=== PATIENT | female | born 1950 | race Caucasian/White ===

== ENCOUNTER 2018-12-30 07:55 | Inpatient (IN) | payer MEDICAID ==
[~2018-12-30] VITALS: Ht 152.4 cm; Wt 101.6 kg
[2018-12-30] MEDS ORDERED: BUPIVACAINE HCL 0.5% (5MG/ML) 50ML ONE ×2 (08:49→10:09)
[2018-12-30] MEDS ORDERED: SODIUM CHLORIDE 0.9% 1,000 ML IV SCH (09:40)
[2018-12-30] MEDS ORDERED: SKIN ADHESIVE 0.7 GM EA TOP ONE (10:09)
[2018-12-30] MEDS ORDERED: ASPI-1393 PO (10:33)
[2018-12-30] MEDS ORDERED: SITA1TAB6 PO (10:33)
[2018-12-30] MEDS ORDERED: PIOG15TA66 PO (10:33)
[2018-12-30] MEDS ORDERED: DICL75TA5 PO (10:33)
[2018-12-30] MEDS ORDERED: FURO20TA4 PO (10:33)
[2018-12-30] MEDS ORDERED: HYDR200T80 PO (10:33)
[2018-12-30] MEDS ORDERED: ACET-2708 PO (10:33)
[2018-12-30] MEDS ORDERED: LISI-186 PO (10:33)
[2018-12-30] MEDS ORDERED: FAMO20TA8 PO (10:33)
[2018-12-30] MEDS ORDERED: GLIP-191 PO (10:33)
[2018-12-30] MEDS ORDERED: ERGO2000 PO (10:43)
[2018-12-30] MEDS ORDERED: VITA1TAB20 PO (10:43)
[2018-12-30] MEDS ORDERED: THIA100T72 PO (10:43)
[2018-12-30] MEDS ORDERED: LIDOCAINE HCL/PF 1% 10 MG/ML 5ML VIAL ONE (11:20)
[2018-12-30] MEDS ORDERED: CEFAZOLIN SODIUM 1000MG/VIAL ONE (11:20)
[2018-12-30] MEDS ORDERED: SUCCINYLCHOLINE CHLORIDE 200MG/10ML IV ONE (11:20)
[2018-12-30] MEDS ORDERED: PROPOFOL 200MG/20ML VIAL IV ONE (11:21)
[2018-12-30] MEDS ORDERED: ROCURONIUM BROMIDE 10MG/ML VIAL 5ML IV ONE (11:37)
[2018-12-30] MEDS ORDERED: FENTANYL CITRATE/PF 50MCG/ML 2ML VIAL ONE (12:38)
[2018-12-30] MEDS ORDERED: METOCLOPRAMIDE HCL 10MG/2ML VIAL ONE (12:51)
[2018-12-30] MEDS ORDERED: KETOROLAC 30MG/ML VIAL ONE (12:51)
[2018-12-30] MEDS ORDERED: NEOSTIGMINE METHYLSULFATE 1MG/ML 10 ML VIAL ONE (12:51)
[2018-12-30] MEDS ORDERED: ONDANSETRON HCL 4MG/2ML INJ ONE (12:51)
[2018-12-30] MEDS ORDERED: GLYCOPYRROLATE 0.2 MG/ML 2ML VIAL ONE (12:51)
[2018-12-30] MEDS ORDERED: ONDANSETRON HCL 4MG/2ML INJ IV PRN (14:00)
[2018-12-30] MEDS ORDERED: MORPHINE SULFATE 2 MG/ML CPJ (NOT FOR IM USE) IV PRN (14:00)
[2018-12-30] MEDS: HYDROMORPHONE HCL/PF 2MG/ML CPJ IV PRN ×3 (14:26→14:49)
[2018-12-30 16:00] VITALS: BP 123/54
[2018-12-30] MEDS: DEXT 5%/0.45% NACL KCL 20MEQ/L 1,000 ML IV SCH (17:53)
[2018-12-30] MEDS: CEFAZOLIN 1000MG PREMIX 50 ML IV SCH (18:01)
[2018-12-30 18:08] VITALS: BP 123/54
[2018-12-30] MEDS ORDERED: ACETAMINOPHEN 325MG TABLET PO PRN (18:45)
[2018-12-30] MEDS: METRONIDAZOLE 500 MG PREMIX 100 ML IV SCH (19:02)
[2018-12-30 20:00] VITALS: BP 116/52
[2018-12-30] MEDS: FAMOTIDINE 20MG/2ML VIAL IV SCH (20:10)
[2018-12-31] VITALS: BP 120/54
[2018-12-31 00:40] VITALS: BP 156/81
[2018-12-31] MEDS: CEFAZOLIN 1000MG PREMIX 50 ML IV SCH ×2 (01:59→09:01)
[2018-12-31] MEDS: DEXT 5%/0.45% NACL KCL 20MEQ/L 1,000 ML IV SCH ×2 (03:42→13:58)
[2018-12-31] MEDS: METRONIDAZOLE 500 MG PREMIX 100 ML IV SCH ×2 (03:42→12:38)
[2018-12-31 08:00] VITALS: BP 116/61
[2018-12-31] MEDS: FAMOTIDINE 20MG/2ML VIAL IV SCH (08:48)
[2018-12-31] MEDS: DICLOFENAC SODIUM 75MG DR (EC) TABLET PO SCH ×2 (08:49→17:00)
[2018-12-31] MEDS ORDERED: ASPIRIN 81MG TABLET PO SCH (09:00)
[2018-12-31] MEDS ORDERED: PIOGLITAZONE 15MG TABLET PO SCH (09:00)
[2018-12-31 12:03] VITALS: BP 115/48
[2018-12-31 14:40] VITALS: BP 115/48
[2018-12-31 16:00] VITALS: BP 141/65
== END 2018-12-31 17:30 | disposition home or self-care (01) | DRG 227 ==
LOC: OR 07:55 → 6EST 07:56
PROVIDERS: ADMIT Surgery; ATTEND Surgery
PROC: 0WUF0JZ Supplement Abdominal Wall with Synthetic Substitute, Open Approach (ICD-10-PCS; principal; 2018-12-30)
DX: K43.0 Incisional hernia with obstruction, without gangrene (principal)
CPT/HCPCS: 82962; 88302; C1781; J0330; J0690; J1170; J1885; J2270; J2405; J2704; J2710; J2765; J3010; J3490

== ENCOUNTER 2019-04-20 18:09 | Inpatient (IN) | payer MEDICAID, OTHER ==
[~2019-04-20] VITALS: Ht 162.6 cm; Wt 94.3 kg
[~2019-04-20 18:09] MED LIST: ACET-2708 PO; ASPI-1393 PO; DICL75TA5 PO; ERGO2000 PO; FAMO20TA8 PO; FURO20TA4 PO; GLIP-191 PO; HYDR200T80 PO; LISI-186 PO; PIOG15TA66 PO; SITA1TAB6 PO; THIA100T72 PO; VITA1TAB20 PO
[2019-04-20] MEDS ORDERED: ONDANSETRON HCL 4MG/2ML INJ IV ONE (20:00)
[2019-04-20] MEDS ORDERED: SODIUM CHLORIDE 0.9% 1000ML BAG (SEPSIS BOLUS) IV ONE (20:00)
[2019-04-20] MEDS ORDERED: MORPHINE SULFATE 4 MG/ML CPJ (NOT FOR IM USE) IV ONE (20:00)
[2019-04-20] MEDS ORDERED: VANCOMYCIN 1 G PREMIX 200 ML IV SCH (20:00)
[2019-04-20] MEDS ORDERED: PIPERACILLIN/TAZOBACTAM 3.375GM/50ML PREMIX IV ONE (20:00)
[2019-04-20] MEDS ORDERED: PIPERACILLIN/TAZOBACTAM 3.375 G in DEXT 5% WATER 100 ML IV NR (20:27)
[2019-04-20 20:28] LABS: HEMATOCRIT. 30.5 % (36.0-48.0); HEMOGLOBIN. 10.2 g/dL (12.0-16.0); MEAN CORPUSCULAR HEMOGLOBIN 30.4 pg (28.0-32.0); MEAN CORPUSCULAR VOLUME 90.4 fL (81.0-99.0); MEAN PLATELET VOLUME 6.9 fl (7.4-10.4); PLATELET 345 x1000/uL (130-400); RED BLOOD CELL COUNT 3.37 mill/uL (4.2-5.4); RED CELL DISTRIBUTION WIDTH 15.5 % (11.6-14.6)
[2019-04-20 20:33] LABS: CHLORIDE 97 mEq/L (98-107)
[2019-04-20 20:34] LABS: INR 1.1
[2019-04-20 21:04] LABS: PLATELET ESTIMATE NORMAL
[2019-04-21] VITALS (8 sets, daily range): BP systolic 90–124; BP diastolic 35–61
[2019-04-21 02:04] LABS: CLARITY URINE CLEAR (CLEAR); COLOR URINE YELLOW (YELLOW); KETONES URINE TRACE (NEGATIVE); LEUKOCYTE ESTERASE URINE NEGATIVE (NEGATIVE); NITRITE URINE NEGATIVE (NEGATIVE); OCCULT BLOOD URINE NEGATIVE (NEGATIVE); PROTEIN URINE NEGATIVE (NEGATIVE); SPECIFIC GRAVITY URINE 1.014 (1.005-1.030); UROBILINOGEN URINE 0.2 E.U./dL (0.2-1.0)
[2019-04-21] MEDS ORDERED: DEXTROSE 50% WATER 50ML SYRINGE IV PRN (03:00)
[2019-04-21] MEDS: BLOOD SUGAR DIAGNOSTIC STRIP TEST SCH ×4 (06:42→22:15)
[2019-04-21] MEDS: ACETAMINOPHEN 325MG TABLET PO PRN ×3 (06:45→21:26)
[2019-04-21] MEDS: SODIUM CHLORIDE 0.9% 1,000 ML IV SCH ×2 (08:11→22:18)
[2019-04-21] MEDS: VANCOMYCIN 1 G PREMIX 200 ML IV SCH (08:36)
[2019-04-21] MEDS: FAMOTIDINE 20MG TABLET PO SCH (08:45)
[2019-04-21] MEDS: HYDROXYCHLOROQUINE SULFATE 200MG TABLET PO SCH ×2 (08:45→18:42)
[2019-04-21] MEDS: ASPIRIN 81MG TABLET PO SCH (08:45)
[2019-04-21] MEDS: INSULIN LISPRO 100 UNITS/ML SUBCUT SCH ×4 (08:47→22:19)
[2019-04-21] MEDS ORDERED: MORPHINE SULFATE 2 MG/ML CPJ (NOT FOR IM USE) IV PRN (09:00)
[2019-04-21] MEDS ORDERED: PIPERACILLIN/TAZOBACTAM 3.375GM/50ML PREMIX IV SCH (09:00)
[2019-04-21] MEDS ORDERED: INSULIN GLARGINE UD 100 UNITS/ML SYR SUBCUT SCH (10:00)
[2019-04-21] MEDS: PIPERACILLIN/TAZOBACTAM 2.25 G in DEXTROSE 5% WATER 50 ML IV SCH ×3 (10:22→18:15)
[2019-04-21] MEDS: INSULIN GLARGINE UD 100 UNITS/ML SYR SUBCUT SCH ×2 (11:31→22:18)
[2019-04-21] MEDS ORDERED: DIGOXIN 500MCG/2ML AMP IV NR (15:15)
[2019-04-21] MEDS: AMIODARONE HCL 200 MG TABLET PO SCH (18:42)
[2019-04-22] VITALS: BP 110/59
[2019-04-22] MEDS: AMIODARONE HCL 200 MG TABLET PO SCH ×4 (00:14→18:00)
[2019-04-22] MEDS: PIPERACILLIN/TAZOBACTAM 2.25 G in DEXTROSE 5% WATER 50 ML IV SCH ×4 (00:14→18:42)
[2019-04-22 04:00] VITALS: BP 95/42
[2019-04-22] MEDS: ACETAMINOPHEN 325MG TABLET PO PRN (05:59)
[2019-04-22] MEDS: BLOOD SUGAR DIAGNOSTIC STRIP TEST SCH ×4 (05:59→21:52)
[2019-04-22 06:46] LABS: HEMATOCRIT. 25.7 % (36.0-48.0); HEMOGLOBIN. 8.6 g/dL (12.0-16.0); MEAN CORPUSCULAR HEMOGLOBIN 29.8 pg (28.0-32.0); MEAN CORPUSCULAR VOLUME 89.6 fL (81.0-99.0); MEAN PLATELET VOLUME 7.1 fl (7.4-10.4); PLATELET 283 x1000/uL (130-400); RED BLOOD CELL COUNT 2.87 mill/uL (4.2-5.4); RED CELL DISTRIBUTION WIDTH 15.5 % (11.6-14.6)
[2019-04-22 08:00] VITALS: BP 128/64
[2019-04-22] MEDS: INSULIN LISPRO 100 UNITS/ML SUBCUT SCH ×4 (08:10→21:54)
[2019-04-22] MEDS: HYDROXYCHLOROQUINE SULFATE 200MG TABLET PO SCH ×2 (08:10→17:45)
[2019-04-22] MEDS: VANCOMYCIN 1 G PREMIX 200 ML IV SCH (08:41)
[2019-04-22] MEDS: ASPIRIN 81MG TABLET PO SCH (09:00)
[2019-04-22] MEDS: FAMOTIDINE 20MG TABLET PO SCH (09:00)
[2019-04-22] MEDS: INSULIN GLARGINE UD 100 UNITS/ML SYR SUBCUT SCH ×2 (10:00→21:55)
[2019-04-22 10:11] LABS: PLATELET ESTIMATE NORMAL
[2019-04-22] MEDS ORDERED: BUPIVACAINE HCL 0.5% (5MG/ML) 50ML ONE (10:54)
[2019-04-22] MEDS ORDERED: SKIN ADHESIVE 0.7 GM EA TOP ONE (10:55)
[2019-04-22] MEDS ORDERED: NEOSTIGMINE METHYLSULFATE 1MG/ML 10 ML VIAL ONE (11:19)
[2019-04-22] MEDS ORDERED: MIDAZOLAM HCL 2 MG/2 ML VIAL ONE (11:19)
[2019-04-22] MEDS ORDERED: ROCURONIUM BROMIDE 10MG/ML VIAL 5ML IV ONE (11:19)
[2019-04-22] MEDS ORDERED: PROPOFOL 200MG/20ML VIAL IV ONE (11:19)
[2019-04-22] MEDS ORDERED: FENTANYL CITRATE/PF 50MCG/ML 2ML VIAL ONE (11:19)
[2019-04-22] MEDS ORDERED: METOCLOPRAMIDE HCL 10MG/2ML VIAL ONE (11:20)
[2019-04-22] MEDS ORDERED: SODIUM CHLORIDE 0.9% 10ML VIAL ONE (11:20)
[2019-04-22] MEDS ORDERED: GLYCOPYRROLATE 0.2 MG/ML 2ML VIAL ONE (11:20)
[2019-04-22] MEDS ORDERED: EPHEDRINE SULFATE 50MG/ML VIAL ONE (11:20)
[2019-04-22] MEDS ORDERED: PHENYLEPHRINE HCL 10 MG/ML 1ML (IV VIAL) IV ONE (11:20)
[2019-04-22] MEDS ORDERED: ONDANSETRON HCL 4MG/2ML INJ ONE (11:20)
[2019-04-22] MEDS ORDERED: LIDOCAINE HCL/PF 1% 10 MG/ML 5ML VIAL ONE (11:20)
[2019-04-22] MEDS ORDERED: SUCCINYLCHOLINE CHLORIDE 200MG/10ML IV ONE (11:20)
[2019-04-22] MEDS ORDERED: DEXAMETHASONE 4MG/ML 1ML VIAL ONE (11:50)
[2019-04-22] MEDS ORDERED: HYDRALAZINE 20MG/ML VIAL ONE (12:09)
[2019-04-22] MEDS ORDERED: ESMOLOL HCL 10MG/ML 10ML VIAL IV ONE (12:17)
[2019-04-22] MEDS ORDERED: HYDROMORPHONE HCL/PF 2MG/ML (OR) ONE (12:47)
[2019-04-22] MEDS: HYDROMORPHONE HCL/PF 2MG/ML CPJ IV PRN ×3 (12:50→13:02)
[2019-04-22 15:30] VITALS: BP 107/60
[2019-04-22] MEDS: SODIUM CHLORIDE 0.9% 1,000 ML IV SCH (18:47)
[2019-04-22 20:00] VITALS: BP 96/48
[2019-04-22] MEDS ORDERED: VANCOMYCIN 1250MG in DEXTROSE 5% WATER 250ML IV SCH (23:00)
[2019-04-23] VITALS: BP 101/74
[2019-04-23] MEDS: SODIUM CHLORIDE 0.9% 1,000 ML IV SCH ×2 (00:33→16:25)
[2019-04-23] MEDS: PIPERACILLIN/TAZOBACTAM 2.25 G in DEXTROSE 5% WATER 50 ML IV SCH ×4 (00:33→18:13)
[2019-04-23 04:00] VITALS: BP 114/48
[2019-04-23] MEDS: BLOOD SUGAR DIAGNOSTIC STRIP TEST SCH ×4 (06:03→21:24)
[2019-04-23 06:46] LABS: HEMATOCRIT. 23.1 % (36.0-48.0); HEMOGLOBIN. 7.7 g/dL (12.0-16.0); MEAN CORPUSCULAR HEMOGLOBIN 29.5 pg (28.0-32.0); MEAN CORPUSCULAR VOLUME 89.1 fL (81.0-99.0); MEAN PLATELET VOLUME 7.1 fl (7.4-10.4); PLATELET 267 x1000/uL (130-400); RED BLOOD CELL COUNT 2.59 mill/uL (4.2-5.4); RED CELL DISTRIBUTION WIDTH 16.1 % (11.6-14.6)
[2019-04-23 06:49] LABS: CHLORIDE 104 mEq/L (98-107)
[2019-04-23] MEDS: AMIODARONE HCL 200 MG TABLET PO SCH ×4 (07:08→21:24)
[2019-04-23 08:00] VITALS: BP 183/76
[2019-04-23] MEDS: ASPIRIN 81MG TABLET PO SCH (09:19)
[2019-04-23] MEDS: HYDROXYCHLOROQUINE SULFATE 200MG TABLET PO SCH ×2 (09:19→17:31)
[2019-04-23] MEDS: FAMOTIDINE 20MG TABLET PO SCH (09:19)
[2019-04-23] MEDS: INSULIN LISPRO 100 UNITS/ML SUBCUT SCH ×6 (09:23→21:26)
[2019-04-23] MEDS: INSULIN GLARGINE UD 100 UNITS/ML SYR SUBCUT SCH ×2 (10:03→21:26)
[2019-04-23 11:59] LABS: PLATELET ESTIMATE NORMAL
[2019-04-23 12:00] VITALS: BP 106/56
[2019-04-23 16:00] VITALS: BP 103/51
[2019-04-23] MEDS: VANCOMYCIN 750 MG PREMIX 150 ML IV SCH (18:42)
[2019-04-23 20:00] VITALS: BP 109/50
[2019-04-24] VITALS: BP_SYST 0; BP_SYST 106; BP_SYST 124; BP_DIAS 0; BP_DIAS 52; BP_DIAS 78
[2019-04-24] MEDS: PIPERACILLIN/TAZOBACTAM 2.25 G in DEXTROSE 5% WATER 50 ML IV SCH ×4 (00:53→18:34)
[2019-04-24 04:00] VITALS: BP 96/45
[2019-04-24] MEDS: VANCOMYCIN 750 MG PREMIX 150 ML IV SCH ×2 (06:20→19:34)
[2019-04-24] MEDS: ACETAMINOPHEN 325MG TABLET PO PRN ×2 (06:32→10:30)
[2019-04-24 06:50] LABS: CHLORIDE 107 mEq/L (98-107)
[2019-04-24] MEDS: BLOOD SUGAR DIAGNOSTIC STRIP TEST SCH ×4 (06:54→21:21)
[2019-04-24] MEDS: INSULIN LISPRO 100 UNITS/ML SUBCUT SCH ×7 (06:54→21:00)
[2019-04-24 06:55] LABS: BASOPHILS % 0.2 % (0.0-2.0); EOSINOPHILS % 0.1 % (0.0-5.0); HEMATOCRIT. 23.5 % (36.0-48.0); HEMOGLOBIN. 8.2 g/dL (12.0-16.0); LYMPHOCYTES % 11.6 % (20.0-50.0); MEAN CORPUSCULAR HEMOGLOBIN 31.5 pg (28.0-32.0); MEAN CORPUSCULAR VOLUME 90.1 fL (81.0-99.0); MEAN PLATELET VOLUME 7.1 fl (7.4-10.4); MONOCYTES % 5.9 % (2.0-8.0); NEUTROPHILS % 82.2 % (40.0-76.0); PLATELET 290 x1000/uL (130-400); RED BLOOD CELL COUNT 2.61 mill/uL (4.2-5.4); RED CELL DISTRIBUTION WIDTH 15.7 % (11.6-14.6)
[2019-04-24 08:00] VITALS: BP 119/58
[2019-04-24] MEDS: AMIODARONE HCL 200 MG TABLET PO SCH (08:39)
[2019-04-24] MEDS: HYDROXYCHLOROQUINE SULFATE 200MG TABLET PO SCH ×2 (08:39→18:34)
[2019-04-24] MEDS: ASPIRIN 81MG TABLET PO SCH (08:39)
[2019-04-24] MEDS: CHOLECALCIFEROL (D3) 1000 UNIT TABLET PO SCH (08:39)
[2019-04-24] MEDS: FAMOTIDINE 20MG TABLET PO SCH (08:39)
[2019-04-24] MEDS: INSULIN GLARGINE UD 100 UNITS/ML SYR SUBCUT SCH ×3 (10:00→21:22)
[2019-04-24] MEDS: DOCUSATE SODIUM 250MG CAPSULE PO PRN (11:11)
[2019-04-24 12:00] VITALS: BP 121/54
[2019-04-24] MEDS ORDERED: AMOX-424 MT (13:49)
[2019-04-24] MEDS ORDERED: SULF1TAB48 MT (13:49)
[2019-04-24 16:00] VITALS: BP 115/54
[2019-04-24] MEDS: SODIUM CHLORIDE 0.9% 1,000 ML IV SCH ×2 (17:00→21:23)
[2019-04-24 20:00] VITALS: BP 95/39
[2019-04-24] MEDS ORDERED: DOCUSATE SODIUM 250MG CAPSULE PO SCH (21:00)
[2019-04-24] MEDS ORDERED: NA PHOS,M-B/NA PHOS,DI-BA ENEMA 118ML PR PRN (21:00)
[2019-04-25] VITALS: BP 103/50
[2019-04-25] MEDS: PIPERACILLIN/TAZOBACTAM 2.25 G in DEXTROSE 5% WATER 50 ML IV SCH ×4 (00:24→17:17)
[2019-04-25] MEDS: ACETAMINOPHEN 325MG TABLET PO PRN ×3 (00:45→17:17)
[2019-04-25 04:00] VITALS: BP 116/50
[2019-04-25] MEDS: BLOOD SUGAR DIAGNOSTIC STRIP TEST SCH ×4 (06:56→21:36)
[2019-04-25] MEDS: VANCOMYCIN 750 MG PREMIX 150 ML IV SCH (06:56)
[2019-04-25] MEDS: INSULIN LISPRO 100 UNITS/ML SUBCUT SCH ×6 (07:40→21:00)
[2019-04-25 08:00] VITALS: BP 112/58
[2019-04-25] MEDS: FAMOTIDINE 20MG TABLET PO SCH (08:43)
[2019-04-25] MEDS: ASPIRIN 81MG TABLET PO SCH (08:43)
[2019-04-25] MEDS: HYDROXYCHLOROQUINE SULFATE 200MG TABLET PO SCH ×2 (08:43→18:15)
[2019-04-25] MEDS: DOCUSATE SODIUM 250MG CAPSULE PO PRN (08:44)
[2019-04-25] MEDS: CHOLECALCIFEROL (D3) 1000 UNIT TABLET PO SCH (08:44)
[2019-04-25] MEDS: INSULIN GLARGINE UD 100 UNITS/ML SYR SUBCUT SCH ×2 (10:00→21:36)
[2019-04-25 12:00] VITALS: BP 125/64
[2019-04-25 16:02] VITALS: BP 121/65
[2019-04-25 16:14] LABS: BASOPHILS % 0.6 % (0.0-2.0); HEMATOCRIT. 25.2 % (36.0-48.0); HEMOGLOBIN. 8.5 g/dL (12.0-16.0); LYMPHOCYTES % 15.9 % (20.0-50.0); MEAN CORPUSCULAR HEMOGLOBIN 30.2 pg (28.0-32.0); MEAN CORPUSCULAR VOLUME 89.6 fL (81.0-99.0); MEAN PLATELET VOLUME 6.5 fl (7.4-10.4); MONOCYTES % 4.5 % (2.0-8.0); PLATELET 327 x1000/uL (130-400); RED BLOOD CELL COUNT 2.81 mill/uL (4.2-5.4); RED CELL DISTRIBUTION WIDTH 16.2 % (11.6-14.6)
[2019-04-25 20:00] VITALS: BP 111/40
[2019-04-25] MEDS: VANCOMYCIN 1 G PREMIX 200 ML IV SCH (22:00)
[2019-04-26] VITALS: BP 108/45
[2019-04-26] MEDS: PIPERACILLIN/TAZOBACTAM 2.25 G in DEXTROSE 5% WATER 50 ML IV SCH ×4 (00:16→19:38)
[2019-04-26] MEDS: ACETAMINOPHEN 325MG TABLET PO PRN ×3 (00:53→15:04)
[2019-04-26] MEDS: BLOOD SUGAR DIAGNOSTIC STRIP TEST SCH ×4 (05:40→21:19)
[2019-04-26 08:00] VITALS: BP 132/57
[2019-04-26] MEDS: INSULIN LISPRO 100 UNITS/ML SUBCUT SCH ×4 (08:10→21:00)
[2019-04-26] MEDS: CHOLECALCIFEROL (D3) 1000 UNIT TABLET PO SCH (09:16)
[2019-04-26] MEDS: FAMOTIDINE 20MG TABLET PO SCH (09:17)
[2019-04-26] MEDS: HYDROXYCHLOROQUINE SULFATE 200MG TABLET PO SCH ×2 (09:18→19:38)
[2019-04-26] MEDS: INSULIN GLARGINE UD 100 UNITS/ML SYR SUBCUT SCH ×2 (09:27→21:20)
[2019-04-26 12:00] VITALS: BP 118/55
[2019-04-26] MEDS: VANCOMYCIN 1 G PREMIX 200 ML IV SCH (15:26)
[2019-04-26 16:00] VITALS: BP 120/65
[2019-04-26 20:00] VITALS: BP 110/43
[2019-04-27] VITALS: BP 118/56
[2019-04-27] MEDS: PIPERACILLIN/TAZOBACTAM 2.25 G in DEXTROSE 5% WATER 50 ML IV SCH ×4 (00:37→18:08)
[2019-04-27] MEDS: ACETAMINOPHEN 325MG TABLET PO PRN ×3 (02:40→16:07)
[2019-04-27 04:00] VITALS: BP 121/60
[2019-04-27] MEDS: BLOOD SUGAR DIAGNOSTIC STRIP TEST SCH ×4 (06:34→21:18)
[2019-04-27 08:00] VITALS: BP 147/96
[2019-04-27] MEDS: INSULIN LISPRO 100 UNITS/ML SUBCUT SCH ×4 (08:10→21:17)
[2019-04-27] MEDS: INSULIN GLARGINE UD 100 UNITS/ML SYR SUBCUT SCH ×3 (10:00→21:18)
[2019-04-27] MEDS: FAMOTIDINE 20MG TABLET PO SCH (10:20)
[2019-04-27] MEDS: HYDROXYCHLOROQUINE SULFATE 200MG TABLET PO SCH ×2 (10:20→18:08)
[2019-04-27] MEDS: CHOLECALCIFEROL (D3) 1000 UNIT TABLET PO SCH (10:20)
[2019-04-27] MEDS: VANCOMYCIN 1 G PREMIX 200 ML IV SCH (10:21)
[2019-04-27 12:00] VITALS: BP 130/55
[2019-04-27 16:00] VITALS: BP 128/81
[2019-04-27 19:17] LABS: BASOPHILS % 0.5 % (0.0-2.0); EOSINOPHILS % 1.5 % (0.0-5.0); HEMATOCRIT. 25.2 % (36.0-48.0); HEMOGLOBIN. 8.5 g/dL (12.0-16.0); LYMPHOCYTES % 15.6 % (20.0-50.0); MEAN CORPUSCULAR HEMOGLOBIN 30.2 pg (28.0-32.0); MEAN CORPUSCULAR VOLUME 89.4 fL (81.0-99.0); MEAN PLATELET VOLUME 6.5 fl (7.4-10.4); MONOCYTES % 4.3 % (2.0-8.0); NEUTROPHILS % 78.1 % (40.0-76.0); PLATELET 383 x1000/uL (130-400); RED BLOOD CELL COUNT 2.82 mill/uL (4.2-5.4); RED CELL DISTRIBUTION WIDTH 16.3 % (11.6-14.6)
[2019-04-27 19:19] LABS: CHLORIDE 105 mEq/L (98-107)
[2019-04-27 20:00] VITALS: BP 126/42
[2019-04-28] VITALS (7 sets, daily range): BP systolic 122–155; BP diastolic 46–76
[2019-04-28] MEDS: PIPERACILLIN/TAZOBACTAM 2.25 G in DEXTROSE 5% WATER 50 ML IV SCH ×4 (00:39→18:31)
[2019-04-28] MEDS: ACETAMINOPHEN 325MG TABLET PO PRN ×3 (02:50→18:34)
[2019-04-28] MEDS: VANCOMYCIN 1 G PREMIX 200 ML IV SCH (04:14)
[2019-04-28] MEDS: BLOOD SUGAR DIAGNOSTIC STRIP TEST SCH ×3 (07:54→18:27)
[2019-04-28] MEDS: INSULIN LISPRO 100 UNITS/ML SUBCUT SCH ×3 (08:10→18:10)
[2019-04-28] MEDS: CHOLECALCIFEROL (D3) 1000 UNIT TABLET PO SCH (09:58)
[2019-04-28] MEDS: HYDROXYCHLOROQUINE SULFATE 200MG TABLET PO SCH ×2 (09:59→18:31)
[2019-04-28] MEDS: FAMOTIDINE 20MG TABLET PO SCH (09:59)
[2019-04-28] MEDS: INSULIN GLARGINE UD 100 UNITS/ML SYR SUBCUT SCH (13:03)
[2019-04-28] MEDS ORDERED: HYDR-4001 PO (19:53)
== END 2019-04-28 21:34 | disposition home health service (06) | DRG 711 ==
LOC: ER 18:09 → 7WST 22:01 → EDBEDREQTM 22:05 → EDBEDREQ 22:05 → EDBEDREQSVC 23:10 → ENRESERV 23:24
PROVIDERS: ADMIT Internal Medicine; ATTEND Internal Medicine
PROC: 0KBL0ZZ Excision of Left Abdomen Muscle, Open Approach (ICD-10-PCS; principal; 2019-04-22)
DX: T81.41XA Infection following a procedure, superficial incisional surgical site, initial encounter (principal); N17.0 Acute kidney failure with tubular necrosis; E44.0 Moderate protein-calorie malnutrition; A41.9 Sepsis, unspecified organism; I48.91 Unspecified atrial fibrillation; E11.22 Type 2 diabetes mellitus with diabetic chronic kidney disease; E87.8 Other disorders of electrolyte and fluid balance, not elsewhere classified; I48.92 Unspecified atrial flutter; E66.01 Morbid (severe) obesity due to excess calories; E87.1 Hypo-osmolality and hyponatremia; M32.9 Systemic lupus erythematosus, unspecified; L02.211 Cutaneous abscess of abdominal wall; D64.9 Anemia, unspecified; E78.5 Hyperlipidemia, unspecified; H91.90 Unspecified hearing loss, unspecified ear; I12.9 Hypertensive chronic kidney disease with stage 1 through stage 4 chronic kidney disease, or unspecified chronic kidney disease; N18.9 Chronic kidney disease, unspecified; I83.90 Asymptomatic varicose veins of unspecified lower extremity; K43.9 Ventral hernia without obstruction or gangrene; K59.00 Constipation, unspecified; Z79.84 Long term (current) use of oral hypoglycemic drugs; Z82.3 Family history of stroke; Z82.49 Family history of ischemic heart disease and other diseases of the circulatory system; Z87.891 Personal history of nicotine dependence; Z68.35 Body mass index [BMI] 35.0-35.9, adult; Z71.3 Dietary counseling and surveillance
CPT/HCPCS: 36415; 71045; 74176; 80048; 80202; 81003; 82962; 83036; 83605; 84145; 84484; 86850; 86900; 86920; 87070; 87075; 87077; 87186; 88305; 93005; 93306; 94002; 97110; 97116; 97162; 97166; 97530; 97535; 99291; J0330; J0360; J1100; J1160; J1170; J1815; J2250; J2270; J2370; J2405; J2543; J2704; J2710; J2765; J3010; J3370; J3490; J7030; J7060

== ENCOUNTER 2019-06-22 22:47 | Inpatient (IN) | payer OTHER ==
[~2019-06-22] VITALS: Ht 170.2 cm; Wt 98.4 kg
[~2019-06-22 22:47] MED LIST changes: +AMOX-424 MT; -ASPI-1393 PO; +ASPI-1497 PO; +HYDR-4001 PO; +SULF1TAB48 MT
[2019-06-23] MEDS ORDERED: MORPHINE SULFATE 4 MG/ML CPJ (NOT FOR IM USE) IV STA (05:44)
[2019-06-23] MEDS ORDERED: ONDANSETRON HCL 4MG/2ML INJ IV STA (05:44)
[2019-06-23] MEDS ORDERED: SODIUM CHLORIDE 0.9% 1000ML BAG (SEPSIS BOLUS) IV ONE (05:45)
[2019-06-23] MEDS ORDERED: PIPERACILLIN/TAZ 3.375G PREMIX 50 ML IV ONE (05:45)
[2019-06-23] MEDS ORDERED: VANCOMYCIN 1 G PREMIX 200 ML IV ONE (05:45)
[2019-06-23 06:08] LABS: BASOPHILS % 0.6 % (0.0-2.0); EOSINOPHILS % 1.5 % (0.0-5.0); HEMOGLOBIN. 10.5 g/dL (12.0-16.0); LYMPHOCYTES % 29.4 % (20.0-50.0); MEAN CORPUSCULAR VOLUME 94.5 fL (81.0-99.0); MEAN PLATELET VOLUME 6.8 fl (7.4-10.4); MONOCYTES % 5.1 % (2.0-8.0); NEUTROPHILS % 63.4 % (40.0-76.0); PLATELET 227 x1000/uL (130-400); RED BLOOD CELL COUNT 3.28 mill/uL (4.2-5.4); RED CELL DISTRIBUTION WIDTH 17.3 % (11.6-14.6)
[2019-06-23 06:15] LABS: CHLORIDE 105 mEq/L (98-107)
[2019-06-23 06:58] LABS: CLARITY URINE CLOUDY (CLEAR); COLOR URINE DARK YELLOW (YELLOW); KETONES URINE NEGATIVE (NEGATIVE); LEUKOCYTE ESTERASE URINE NEGATIVE (NEGATIVE); NITRITE URINE NEGATIVE (NEGATIVE); OCCULT BLOOD URINE NEGATIVE (NEGATIVE); PROTEIN URINE NEGATIVE (NEGATIVE); SPECIFIC GRAVITY URINE 1.017 (1.005-1.030); UROBILINOGEN URINE 0.2 E.U./dL (0.2-1.0)
[2019-06-23] MEDS ORDERED: IOHEXOL-300 100 ML BOTTLE ONE (07:06)
[2019-06-23] MEDS ORDERED: HYDROCODONE/ACETAMINOPHEN 5/325MG TABLET PO PRN (09:45)
[2019-06-23] MEDS ORDERED: MORPHINE SULFATE 2 MG/ML CPJ (NOT FOR IM USE) IV PRN (09:45)
[2019-06-23] MEDS ORDERED: DEXTROSE 50% WATER 50ML SYRINGE IV PRN (09:45)
[2019-06-23] MEDS ORDERED: ONDANSETRON HCL 4MG/2ML INJ IV PRN (09:45)
[2019-06-23] MEDS ORDERED: CLONIDINE 0.1MG TABLET PO PRN (13:15)
[2019-06-23 15:00] VITALS: BP 127/62
[2019-06-23] MEDS: BLOOD SUGAR DIAGNOSTIC STRIP TEST SCH ×2 (17:01→20:41)
[2019-06-23] MEDS: INSULIN LISPRO 100 UNITS/ML SUBCUT SCH ×2 (17:01→21:19)
[2019-06-23] MEDS: PIPERACILLIN/TAZOBACTAM 3.375 G in DEXT 5% WATER 100 ML IV SCH ×2 (18:56→23:20)
[2019-06-23 20:00] VITALS: BP 129/65
[2019-06-24] VITALS: BP 136/73
[2019-06-24] MEDS: VANCOMYCIN 1 G PREMIX 200 ML IV SCH ×2 (00:13→18:57)
[2019-06-24 04:00] VITALS: BP 149/71
[2019-06-24] MEDS: PIPERACILLIN/TAZOBACTAM 3.375 G in DEXT 5% WATER 100 ML IV SCH ×4 (05:08→22:30)
[2019-06-24] MEDS: BLOOD SUGAR DIAGNOSTIC STRIP TEST SCH ×4 (06:42→20:23)
[2019-06-24 07:44] LABS: BASOPHILS % 0.6 % (0.0-2.0); EOSINOPHILS % 2.3 % (0.0-5.0); HEMATOCRIT. 28.7 % (36.0-48.0); HEMOGLOBIN. 9.7 g/dL (12.0-16.0); LYMPHOCYTES % 28.6 % (20.0-50.0); MEAN CORPUSCULAR HEMOGLOBIN 31.7 pg (28.0-32.0); MEAN PLATELET VOLUME 7.3 fl (7.4-10.4); MONOCYTES % 4.9 % (2.0-8.0); NEUTROPHILS % 63.6 % (40.0-76.0); PLATELET 192 x1000/uL (130-400); RED BLOOD CELL COUNT 3.05 mill/uL (4.2-5.4); RED CELL DISTRIBUTION WIDTH 17.2 % (11.6-14.6)
[2019-06-24 08:00] VITALS: BP 140/59
[2019-06-24 08:02] LABS: CHLORIDE 108 mEq/L (98-107)
[2019-06-24] MEDS: INSULIN LISPRO 100 UNITS/ML SUBCUT SCH ×4 (08:53→20:26)
[2019-06-24 12:00] VITALS: BP 105/54
[2019-06-24] MEDS: ACETAMINOPHEN 325MG TABLET PO PRN (15:40)
[2019-06-24 16:00] VITALS: BP 141/72
[2019-06-24 20:00] VITALS: BP 125/55
[2019-06-25] VITALS (7 sets, daily range): BP systolic 119–143; BP diastolic 56–70
[2019-06-25] MEDS: PIPERACILLIN/TAZOBACTAM 3.375 G in DEXT 5% WATER 100 ML IV SCH ×3 (05:04→18:35)
[2019-06-25] MEDS: BLOOD SUGAR DIAGNOSTIC STRIP TEST SCH ×3 (06:52→18:16)
[2019-06-25 07:09] LABS: HEMATOCRIT. 29.4 % (36.0-48.0); HEMOGLOBIN. 9.9 g/dL (12.0-16.0); MEAN CORPUSCULAR VOLUME 94.4 fL (81.0-99.0); MEAN PLATELET VOLUME 7.1 fl (7.4-10.4); PLATELET 202 x1000/uL (130-400); RED BLOOD CELL COUNT 3.11 mill/uL (4.2-5.4); RED CELL DISTRIBUTION WIDTH 17.1 % (11.6-14.6)
[2019-06-25 07:13] LABS: CHLORIDE 106 mEq/L (98-107)
[2019-06-25] MEDS: INSULIN LISPRO 100 UNITS/ML SUBCUT SCH ×3 (08:20→18:28)
[2019-06-25 10:10] LABS: PLATELET ESTIMATE NORMAL
[2019-06-25] MEDS: ACETAMINOPHEN 325MG TABLET PO PRN (11:33)
[2019-06-25] MEDS ORDERED: SULF1TAB48 MT (11:46)
[2019-06-25] MEDS ORDERED: AMOX-424 MT (11:46)
[2019-06-25] MEDS: VANCOMYCIN 1 G PREMIX 200 ML IV SCH (13:04)
[2019-06-25] MEDS ORDERED: ERGOCALCIFEROL 50000UNITS CAPSULE PO NR (18:00)
== END 2019-06-25 20:35 | disposition home or self-care (01) | DRG 383 ==
LOC: ER 22:47 → 6EST 06-23 07:43 → EDBEDREQ 06-23 13:09 → EDBEDREQSVC 06-23 13:09 → ENRESERV 06-23 13:34 → 6EST 06-23 15:04
PROVIDERS: ADMIT Internal Medicine; ATTEND Internal Medicine
DX: L03.311 Cellulitis of abdominal wall (principal); M32.9 Systemic lupus erythematosus, unspecified; E87.1 Hypo-osmolality and hyponatremia; E11.9 Type 2 diabetes mellitus without complications; E66.9 Obesity, unspecified; D64.9 Anemia, unspecified; I10 Essential (primary) hypertension; Z68.34 Body mass index [BMI] 34.0-34.9, adult
CPT/HCPCS: 36415; 71045; 74177; 80048; 80053; 81003; 82962; 83605; 84145; 85025; 87070; 87186; 96365; 99291; J1815; J2270; J2405; J2543; J3370; J7030; J7060; Q9967